=== PATIENT | male | born 1950 | race Caucasian/White ===

== ENCOUNTER 2017-01-17 16:35 | Emergency (ER) | payer MEDICARE ==
[~2017-01-17] VITALS: Ht 182.9 cm; Wt 81.0 kg
[~2017-01-17 16:35] MED LIST: AMLO5TAB2 PO; AMLO5TAB4 PO; ASCO10004 PO; CEPH-376 PO; ECHI380C PO; ENZY1TAB2 PO; GLUC1TAB27 PO; HYDR-3144 PO; HYDR50CA PO; LACT1CAP24 PO; LACT1CAP35 PO; MELO-184 PO; METO-93 PO; METO50TA4 PO; NIAC500T10 PO; OXYC1TAB7 PO; milk thistle PO; potassium PO; zinc PO
[2017-01-17] MEDS ORDERED: FLUORESCEIN OPHTHALMIC 1 MG STRIP ONE ×2 (17:08→17:11)
[2017-01-17] MEDS ORDERED: PROPARACAINE OPHTH 0.5%, 15ML ONE ×2 (17:08→17:11)
[2017-01-17] MEDS ORDERED: LORazepam 1MG TABLET ONE (20:10)
[2017-01-17] MEDS ORDERED: LORazepam 1MG TABLET PO ONE (20:30)
[2017-01-17 20:59] VITALS: BP 164/78
== END 2017-01-17 21:39 | disposition home or self-care (01) ==
LOC: ED 20:00
DX: H33.22 Serous retinal detachment, left eye (principal); H33.312 Horseshoe tear of retina without detachment, left eye; I10 Essential (primary) hypertension; Z87.891 Personal history of nicotine dependence
CPT/HCPCS: 99282